=== PATIENT | male | born 1995 | race Caucasian/White ===

== ENCOUNTER 2020-11-14 19:06 | Emergency (ER) | payer OTHER, SELFPAY ==
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
[2020-11-14 19:09] VITALS: BP 153/87; PULSE 105; RESP 20; TEMP 36.2; O2SAT 100
[2020-11-14 19:22] VITALS: BP 155/95; PULSE 117; RESP 20; O2SAT 97
--- NOTE | 2020-11-14 19:30 | ECG_ITS ---
Measurements Intervals [place] Rate: 112 P: 42 AL: 147 QRS: 46 QRSD: 86 T: 18 QT: 307 QTc: 421 Interpretive Statements SINUS TACHYCARDIA NONSPECIFIC T-WAVE ABNORMALITY- INFERIOR LEADS ABNORMAL ECG Electronically Signed On 11-15-2020 7:16:03 [employer]ERSON by John Paul Cabrera D.O.
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
[2020-11-14 20:32] VITALS: BP 139/69; PULSE 110; RESP 20; O2SAT 98
[2020-11-14 21:20] VITALS: BP 144/90; PULSE 101; RESP 18; O2SAT 97
[2020-11-14] MEDS: ALBUTEROL SULFATE (*SP) AEROSOL 1 PUFF 2 PUFF INHALATION (21:21)
[2020-11-14 21:25] VITALS: PULSE 110; RESP 20
[2020-11-14 22:04] VITALS: BP 136/73; PULSE 97; RESP 19; TEMP 36.4; O2SAT 98
== END 2020-11-14 22:05 | disposition home or self-care (01) ==
PROVIDERS: Emergency Provider Emergency Medicine; PCP Family Medicine
DX: U07.1 COVID-19 (principal); R00.0 Tachycardia, unspecified; R94.31 Abnormal electrocardiogram [ECG] [EKG]; X00.0XXA Exposure to flames in uncontrolled fire in building or structure, initial encounter
CPT/HCPCS: 71045; 93005; 94640; 99283; A9270